=== PATIENT | male | born 1940 | race Caucasian/White ===

== ENCOUNTER → 2019-07-17 | Outpatient (CLI) | payer MEDICARE, OTHER ==
[~2019-07-17] MED LIST: ALLO300T PO; ALPH200C PO; BENFOTIAMINE PO; CARV6.252 PO; COLC0.6T37 PO; EPIN0.3P3 IM; FENO145T19 PO; GLUC PO; LECI1200 PO; LISI5TAB7 PO; MAGNESIUM PO; METF500T27 PO; OMEP-110 PO; POTA473S4 PO; PSYL0.5215 PO; ROSU10TA2 PO; VITA1TAB19 PO; VITAMIN B12 PO; VITAMIN D2 PO; [UNRECOGNIZED DRUG - OTHER] PO
== END | disposition home or self-care (01) ==
LOC: CFH 09:36
PROVIDERS: ATTEND Internal Medicine Cardiovascular Disease
DX: I08.0 Rheumatic disorders of both mitral and aortic valves (principal); R94.31 Abnormal electrocardiogram [ECG] [EKG]; I10 Essential (primary) hypertension
CPT/HCPCS: 93306